=== PATIENT | female | born 1980 | race Asian ===

== ENCOUNTER 2018-09-11 10:03 | Emergency (ER) | payer OTHER ==
[~2018-09-11] VITALS: Ht 162.6 cm; Wt 46.7 kg
[2018-09-11 11:28] LABS: Source, Urine Clean Catch
[2018-09-11 11:32] LABS: BASOPHILS ABSOLUTE AUTO 0.02 K/mm3 (0.00-0.23); BASOPHILS PERCENT AUTO 0 % (0-2); EOSINOPHILS ABSOLUTE AUTO 0.07 K/mm3 (0.00-0.68); EOSINOPHILS PERCENT AUTO 1 % (0-6); Hematocrit 33.3 % (33.0-51.0); Hemoglobin 10.4 g/dL (11.5-16.0); IMMATURE GRAN ABSOLUTE AUTO 0.04 K/mm3 (0.00-0.10); IMMATURE GRAN PERCENT AUTO 1 % (0-1); LYMPHOCYTES ABSOLUTE AUTO 1.42 K/mm3 (0.84-5.20); LYMPHOCYTES PERCENT AUTO 16 % (21-46); MONOCYTES PERCENT AUTO 5 % (4-13); Mean Corpuscular HGB 21.4 pg (26.0-34.0); Mean Corpuscular HGB Conc 31.2 g/dL (31.5-36.5); Mean Corpuscular Volume 69 fL (80-100); Mean Platelet Volume 10.3 fL (9.1-12.4); NEUTROPHILS ABSOLUTE AUTO 6.82 K/mm3 (1.96-9.15); NEUTROPHILS PERCENT AUTO 78 % (41-73); Platelet Count 302 K/mm3 (150-400); RDW Coefficient Variation 15.8 % (11.7-14.2); RDW Standard Deviation 37.2 fL (35.1-46.3); Red Blood Cell Count 4.86 M/mm3 (3.80-5.20); White Blood Cell Count 8.77 K/mm3 (4.00-11.30)
[2018-09-11 11:36] LABS: Bilirubin, Urine Neg (Neg); Blood, Urine 2+ (Neg); Glucose Qualitative, Urine Neg (Neg); Ketones, Urine Neg (Neg); Leukocyte Esterase, Urine Neg (Neg); Nitrite, Urine Neg (Neg); Protein, Urine Neg (Neg); Urobilinogen, Urine NORM (Normal)
[2018-09-11 11:41] LABS: Appearance, Urine Clear (Clear); Color, Urine Yellow (P-Yellow)
[2018-09-11 11:42] LABS: White Blood Cells, Urine 0-2 /hpf (0-5)
[2018-09-11 11:43] LABS: Bacteria Few /hpf; Squamous Epithelial Cells Few /hpf (Few)
[2018-09-11 11:50] LABS: Alanine Aminotransfer (ALT/SGP 21 U/L (12-78); Albumin, Blood 3.9 g/dL (3.4-5.0); Albumin/Globulin Ratio 1.1 (0.8-1.8); Alk Phos 49 U/L (50-136); Anion Gap 8 mmol/L (6-16); Aspartate Aminotrans (AST/SGOT 25 U/L (12-37); Bilirubin, Total 0.6 mg/dL (0.1-1.0); Blood Urea Nitrogen 7 mg/dL (8-24); Bun/Creatinine Ratio 12.5 (12.0-20.0); CO2, Blood 26 mmol/L (21-32); Calcium, Blood 8.6 mg/dL (8.5-10.1); Chloride, Blood 105 mmol/L (98-108); Creatinine, Blood 0.56 mg/dL (0.40-1.00); Globulin, Blood 3.4 g/dL (2.2-4.0); Glomerular Filtration Rate >60 (60-); Glucose, Blood 101 mg/dL (70-99); Potassium, Blood 3.6 mmol/L (3.5-5.5); Sodium, Blood 139 mmol/L (136-145); Total Protein, Blood 7.3 g/dL (6.4-8.2)
== END 2018-09-11 18:33 | disposition left against medical advice (07) ==
LOC: ER 10:03
PROVIDERS: Emergency Medicine
DX: O03.9 Complete or unspecified spontaneous abortion without complication (principal); Z3A.01 Less than 8 weeks gestation of pregnancy
CPT/HCPCS: 36415; 76801; 80053; 81001; 81025; 83690; 84702; 85025; 86900; 86901; 99284-25

== ENCOUNTER 2020-09-29 23:42 | Inpatient (IN) | payer OTHER ==
[~2020-09-29] VITALS: Ht 149.9 cm; Wt 59.0 kg
[2020-09-30] MEDS ORDERED: PRENATAL TABLE1 EAC2 PO (00:12)
[2020-09-30 00:29] LABS: BASOPHILS ABSOLUTE AUTO 0.03 K/mm3 (0.00-0.23); BASOPHILS PERCENT AUTO 0 % (0-2); EOSINOPHILS PERCENT AUTO 1 % (0-6); Hematocrit 34.5 % (33.0-51.0); Hemoglobin 11.2 g/dL (11.5-16.0); IMMATURE GRAN ABSOLUTE AUTO 0.02 K/mm3 (0.00-0.10); IMMATURE GRAN PERCENT AUTO 0 % (0-1); LYMPHOCYTES ABSOLUTE AUTO 2.35 K/mm3 (0.84-5.20); LYMPHOCYTES PERCENT AUTO 33 % (21-46); MONOCYTES ABSOLUTE AUTO 0.39 K/mm3 (0.16-1.47); MONOCYTES PERCENT AUTO 6 % (4-13); Mean Corpuscular HGB 22.5 pg (26.0-34.0); Mean Corpuscular HGB Conc 32.5 g/dL (31.5-36.5); Mean Corpuscular Volume 69 fL (80-100); Mean Platelet Volume 10.9 fL (9.1-12.4); NEUTROPHILS ABSOLUTE AUTO 4.18 K/mm3 (1.96-9.15); NEUTROPHILS PERCENT AUTO 59 % (41-73); Platelet Count 243 K/mm3 (150-400); RDW Coefficient Variation 14.6 % (11.7-14.2); RDW Standard Deviation 35.3 fL (35.1-46.3); Red Blood Cell Count 4.98 M/mm3 (3.80-5.20); White Blood Cell Count 7.07 K/mm3 (4.00-11.30)
[2020-09-30 01:17] LABS: Influenza A, PCR Negative (NEGATIVE); Influenza B, PCR Negative (NEGATIVE); Resp Syncytial Virus, PCR Negative (NEGATIVE); SARS-Cov-2 (COVID-19) PCR, MMC Negative (NEGATIVE)
--- NOTE | 2020-09-30 08:12 | NUR ---
USED INTERPERTER SERVICE FOR ASSESSMENT AND DISCUSSED HOURLY ROUNDING, WHEN PT TO CALL RN, DISCUSSED BF NB AND WHEN NEXT CBG WILL BE DONE. PT DEMONSTRATES UNDERSTANDING. REPORTS SHE HAS SOME CRAMPING WITH URINATION. DISCUSSED USING PERIBOTTLE IF PAIN IS MORE ON LABIA FROM REPAIR. DENIES DIFFICULTY VOIDING. REPORTS BF GOING WELL. DOESN'T NEED ASSISTANCE AT THIS TIME. NB TO BREAST. PARENTS HANDLING NB WELL. CALL LIGHT DISCUSSED AND DEMONOSTRATED FOR PT TO CALL RN. PT TO JUST POINT TO THE PHONE AT ANY TIME SHE FEELS SHE NEEDS THE INTERPRETTER. PT REPORTS HER AND HER UNDERSTAND SOME GERMAN. PT TO PLEASE POINT TO PHONE IF SHE HAS ANY QUESTIONS, CONCERNS, OR NOT SURE IF WE ARE COMMUNICATING WELL. BOTH VERBALIZE UNDERSTANDING.
--- NOTE | 2020-09-30 09:41 | NUR ---
DR. JIMÉNEZ IN WITH PT INTERPRETTING HOW TO USE THE FEEDING LOG AND ANSWERING ANY OTHER QUESTIONS THEY HAVE AT THIS TIME.
[2020-09-30 12:47] LABS: BASOPHILS ABSOLUTE AUTO 0.02 K/mm3 (0.00-0.23); BASOPHILS PERCENT AUTO 0 % (0-2); EOSINOPHILS ABSOLUTE AUTO 0.01 K/mm3 (0.00-0.68); EOSINOPHILS PERCENT AUTO 0 % (0-6); Hematocrit 33.4 % (33.0-51.0); Hemoglobin 10.7 g/dL (11.5-16.0); IMMATURE GRAN ABSOLUTE AUTO 0.04 K/mm3 (0.00-0.10); IMMATURE GRAN PERCENT AUTO 0 % (0-1); LYMPHOCYTES ABSOLUTE AUTO 1.49 K/mm3 (0.84-5.20); LYMPHOCYTES PERCENT AUTO 13 % (21-46); MONOCYTES ABSOLUTE AUTO 0.36 K/mm3 (0.16-1.47); MONOCYTES PERCENT AUTO 3 % (4-13); Mean Corpuscular HGB 22.1 pg (26.0-34.0); Mean Corpuscular Volume 69 fL (80-100); Mean Platelet Volume 10.8 fL (9.1-12.4); NEUTROPHILS ABSOLUTE AUTO 9.78 K/mm3 (1.96-9.15); NEUTROPHILS PERCENT AUTO 84 % (41-73); Platelet Count 218 K/mm3 (150-400); RDW Coefficient Variation 14.6 % (11.7-14.2); RDW Standard Deviation 35.3 fL (35.1-46.3); Red Blood Cell Count 4.85 M/mm3 (3.80-5.20)
--- NOTE | 2020-09-30 14:40 | NUR ---
DR. JIMÉNEZ AND Johnathan HERE WORKING WITH PATIENT.
--- NOTE | 2020-09-30 16:46 | NUR ---
UP AMBULATING IN ROOM
[2020-10-01] MEDS ORDERED: IBUP800 PO (09:38)
== END 2020-10-01 11:25 | disposition home or self-care (01) | DRG 807 ==
LOC: OBS 23:42 → BC 09-30 00:01
PROVIDERS: ADMIT Nurse Practitioner Obstetrics & Gynecology
PROC: 10E0XZZ Delivery of Products of Conception, External Approach (ICD-10-PCS; principal; 2020-09-30)
PROC: 0KQM0ZZ Repair Perineum Muscle, Open Approach (ICD-10-PCS; 2020-09-30)
DX: O24.429 Gestational diabetes mellitus in childbirth, unspecified control (principal); Z37.0 Single live birth; Z3A.37 37 weeks gestation of pregnancy; O32.6XX0 Maternal care for compound presentation, not applicable or unspecified; O70.1 Second degree perineal laceration during delivery; Z20.828 Contact with and (suspected) exposure to other viral communicable diseases
CPT/HCPCS: 0241U; 36415; 36416; 82947; 85025; 86850; 86900; 86901; J2210; J2590; J7120

== ENCOUNTER → 2023-06-15 | Outpatient (CLI) | payer OTHER ==
[~2023-06-15] MED LIST: IBUP800 PO; PRENATAL TABLE1 EAC2 PO
== END | disposition home or self-care (01) ==
LOC: LAB 10:51 → LAB SHORT 10:51
DX: R53.81 Other malaise (principal)
CPT/HCPCS: 84443

== ENCOUNTER → 2023-09-14 | Outpatient (CLI) | payer OTHER ==
[2023-09-14 16:32] LABS: BASOPHILS ABSOLUTE AUTO 0.02 K/mm3 (0.00-0.23); BASOPHILS PERCENT AUTO 0 % (0-2); EOSINOPHILS ABSOLUTE AUTO 0.22 K/mm3 (0.00-0.68); EOSINOPHILS PERCENT AUTO 3 % (0-6); Hematocrit 35.9 % (33.0-51.0); Hemoglobin 11.4 g/dL (11.5-16.0); IMMATURE GRAN ABSOLUTE AUTO 0.01 K/mm3 (0.00-0.10); IMMATURE GRAN PERCENT AUTO 0 % (0-1); LYMPHOCYTES ABSOLUTE AUTO 2.21 K/mm3 (0.84-5.20); LYMPHOCYTES PERCENT AUTO 34 % (21-46); MONOCYTES ABSOLUTE AUTO 0.39 K/mm3 (0.16-1.47); MONOCYTES PERCENT AUTO 6 % (4-13); Mean Corpuscular HGB 20.8 pg (26.0-34.0); Mean Corpuscular HGB Conc 31.8 g/dL (31.5-36.5); Mean Corpuscular Volume 66 fL (80-100); Mean Platelet Volume 9.9 fL (9.1-12.4); NEUTROPHILS ABSOLUTE AUTO 3.68 K/mm3 (1.96-9.15); NEUTROPHILS PERCENT AUTO 56 % (41-73); Platelet Count 267 K/mm3 (150-400); RDW Coefficient Variation 15.5 % (11.7-14.2); RDW Standard Deviation 35.3 fL (35.1-46.3); Red Blood Cell Count 5.47 M/mm3 (3.80-5.20); White Blood Cell Count 6.53 K/mm3 (4.00-11.30)
[2023-09-14 22:22] LABS: Alanine Aminotransfer (ALT/SGP 24 U/L (12-78); Albumin/Globulin Ratio 1.2 (0.8-1.8); Alk Phos 47 U/L (50-136); Anion Gap 4 mmol/L (6-16); Aspartate Aminotrans (AST/SGOT 16 U/L (12-37); Bilirubin, Total 0.4 mg/dL (0.1-1.0); Blood Urea Nitrogen 15 mg/dL (8-24); Bun/Creatinine Ratio 25.3 (12.0-20.0); CHOL/HDL RATIO 3.3; CO2, Blood 28 mmol/L (21-32); Calcium, Blood 8.6 mg/dL (8.5-10.1); Chloride, Blood 107 mmol/L (98-108); Cholesterol 175 mg/dL (50-200); Creatinine, Blood 0.59 mg/dL (0.40-1.00); Globulin, Blood 3.3 g/dL (2.2-4.0); Glomerular Filtration Rate 114 (60-); Glucose, Blood 107 mg/dL (70-99); HDL Cholesterol 53 mg/dL (>39); LDL/HDL RATIO 1.9; Low Density Lipoprotein Chol 103 mg/dL (0-110); Potassium, Blood 3.6 mmol/L (3.5-5.5); Sodium, Blood 139 mmol/L (136-145); Total Protein, Blood 7.3 g/dL (6.4-8.2); Triglycerides 97 mg/dL (30-160); Very Low Density Lipoprot Chol 19 mg/dL (6-32)
[2023-09-15 15:26] LABS: Ferritin, Serum 43 ng/mL (8-252); Iron Serum 124 ug/dL (50-170); Percent Saturation 52.1 % (15.0-50.0); Total Iron Binding Capacity 238 ug/dL (250-450)
== END | disposition home or self-care (01) ==
LOC: LAB 14:40 → LAB SHORT 14:40
PROVIDERS: Nurse Practitioner Family
DX: Z13.6 Encounter for screening for cardiovascular disorders (principal); O24.420 Gestational diabetes mellitus in childbirth, diet controlled
CPT/HCPCS: 80053; 80061; 82728; 83540; 83550; 85025

== ENCOUNTER → 2023-09-28 | Outpatient (CLI) | payer OTHER ==
[2023-10-08 03:03] LABS: HPV GENOTYPE 16 BY PCR Negative; HPV GENOTYPE 18 BY PCR Negative; HPV SOURCE Cervical; HPV, OTHER HIGH RISK BY PCR Negative
== END ==
LOC: LAB SHORT 15:25 → LAB 15:25
PROVIDERS: Nurse Practitioner Family
DX: Z01.419 Encounter for gynecological examination (general) (routine) without abnormal findings (principal)
CPT/HCPCS: 87624; 88142

== ENCOUNTER 2024-01-17 08:26 | Day surgery (SDC) | payer OTHER ==
[~2024-01-17] VITALS: Ht 172.7 cm; Wt 47.7 kg
[~2024-01-17 08:26] MED LIST changes: +Lactated Ringer's 1,000 ML IV ONE; +Ropivacaine 0.5% HCl/Pf 5 MG/ML 20ML VIAL ONE
[2024-01-17] MEDS ORDERED: Midazolam HCl 1MG / ML 2ML Vial ONE (08:45)
[2024-01-17] MEDS ORDERED: propofoL 20 ML IV ONE (08:45)
[2024-01-17] MEDS ORDERED: FentaNYL Citrate 50 MCG/ML 2 ML Injection ONE ×2 (08:45→11:06)
[2024-01-17] MEDS ORDERED: TRANEXAMIC ACID IV SCH (08:50)
[2024-01-17] MEDS ORDERED: NS IV SCH (08:50)
[2024-01-17] MEDS ORDERED: Lactated Ringer's 1,000 ML IV ONE (09:29)
--- NOTE | 2024-01-17 09:31 | NUR ---
[facility] NOTIFIED THAT PATIENT'S SPECIFIC GRAVITY OF URINE IS 1.005 WHICH IS TOO LOW FOR HCG URINE TEST. DR SIMPSON NOTIFIED THAT PATIENT REPORTED SHE DRANK A GLASS OF WATER AT 0800. 0915: PATIENT REPORTED TO DR SIMPSON THAT IT WAS ACTUALLY ONLY A FEW SIPS OF WATER AT 0800.
[2024-01-17] MEDS ORDERED: NS 50 ML IV ONE (09:32)
[2024-01-17] MEDS ORDERED: CeFAZolin Sodium 2,000 MG VIAL ONE (09:32)
[2024-01-17] MEDS ORDERED: EPINEPhrine HCl 1 MG/ML 1ML Amp XX ONE ×3 (09:59)
--- NOTE | 2024-01-17 10:05 | NUR ---
01/17/24 1005 Mey Sims KNEE POST IN PLACE.
--- NOTE | 2024-01-17 10:58 | NUR ---
01/17/24 1058 JOBY MITCHELL PAIN 02/02. DENIES NAUSEA.
[2024-01-17] MEDS ORDERED: OxyCODONE HCL 5 MG TAB ONE (11:06)
--- NOTE | 2024-01-17 11:08 | NUR ---
01/17/24 1108 JOBY MITCHELL REPORTS PAIN 4/10 VIA PAIN MEASUREMENT SCALE
[2024-01-17 11:53] VITALS: BP 118/69
== END 2024-01-17 12:15 | disposition home or self-care (01) ==
LOC: ORSCSDS 08:26
PROVIDERS: Orthopaedic Surgery Sports Medicine
PROC: 0SBC4ZZ Excision of Right Knee Joint, Percutaneous Endoscopic Approach (ICD-10-PCS; principal; 2024-01-17 10:15)
DX: S83.241A Other tear of medial meniscus, current injury, right knee, initial encounter (principal); S83.281A Other tear of lateral meniscus, current injury, right knee, initial encounter; M71.21 Synovial cyst of popliteal space [Baker], right knee; M94.261 Chondromalacia, right knee
CPT/HCPCS: A9270; J0171; J0690; J2250; J2704; J2795; J3010; J7120